=== PATIENT | female | born 1995 | race Caucasian/White ===

== ENCOUNTER 2024-09-29 13:27 | Emergency (ER) | payer OTHER, SELFPAY ==
[2024-09-29 14:00] LABS: % Basophils 0.4 % (0-2); % Eosinophils 0.6 % (0-6); % Immature Granulocytes 0.3 % (0-0.5); % Lymphocytes 18.5 % (20.5-51.1); % Monocytes 3.9 % (1.7-9.3); % Neutrophils 76.3 % (42.2-75.2); Absolute Lymphocytes 1.2 10^3/uL (1.2-3.4); Absolute Monocytes 0.3 10^3/uL (0.1-0.6); Absolute Neutrophils 5.1 10^3/uL (1.4-6.5); Hemoglobin 12.6 g/dL (12.0-16.0); Mean Corpuscular Hgb 29.9 pg (27.0-31.0); Mean Corpuscular Volume 85.5 fL (81.0-99.0); Mean Platelet Volume 9.9 fL (7.4-10.4); Nucleated Red Blood Cells % 0 %; Platelet Count 284 10^3/uL (130-400); Red Blood Cell Count 4.21 10^6/uL (4.20-5.40); Red Cell Dist. Width 12.2 % (11.5-14.5); White Blood Cell Count 6.7 10^3/uL (4.8-10.8)
[2024-09-29 14:20] LABS: ALT (SGPT) 28 U/L (0-35); AST (SGOT) 27 U/L (14-36); Alkaline Phosphatase 63 U/L (38-126); Blood Urea Nitrogen 12 mg/dl (7-17); Calcium 9.4 mg/dl (8.4-10.2); Carbon Dioxide 20 mmol/L (22-30); Chloride 106 mmol/L (98-107); Glucose 120 mg/dl (70-99); HCG, Serum Qualitative Screen Negative; Lipase 73 U/L (23-300); Potassium 3.9 mmol/L (3.5-5.1); Sodium 140 mmol/L (135-145); Total Protein 7.9 g/dl (6.3-8.2); eGFR > 60.00
--- NOTE | 2024-09-29 15:13 | ED.GENMED ---
History of Present Illness
<Darian Galvan PA-C - Last Filed: 09/29/24 16:49>
General
Chief Complaint: Abdominal Symptoms
Source: patient
Exam Limitations: none
Time Seen by Provider: 09/29/24 15:04
History of Present Illness
History of Present Illness:
29-year-old female presents with intermittent vomiting abdominal pain diarrhea for 5 days. No known sick contacts. She think she had a fever yesterday. The pain is on both sides of her abdomen and diffuse. Pain is constant. She cannot keep
anything in or down. She is concerned about dehydration.
Past History
<Darian Galvan PA-C - Last Filed: 09/29/24 16:49>
Social History
Tobacco: Smoker
Drug: Marijuana and Narcotics
Phy Exam
<JOZEF Narayanan Last Filed: 09/29/24 16:49>
Physical Exam
Physical Exam:
General: Well-appearing female no acute respiratory distress
HEENT: Normocephalic atraumatic
Heart: Regular rate and rhythm no murmurs
Lungs: Clear no wheeze abdomen is soft nontender nondistended no guarding or rebound
Extremities: No cyanosis
Course
<Darian Galvan PA-C - Last Filed: 09/29/24 16:49>
Orders/Labs/Results
Orders:
Orders
09/29/24 13:37
IV Insert/Care/Rem.- Treatment PRN
Test Result ONCE
09/29/24 13:47
Complete Blood Count/With Diff Urgent
Comprehensive Metabolic Panel Urgent
HCG, Serum Qualitative Screen Urgent
Comment: Notify provider if positive test present
Lipase Urgent
09/29/24 15:12
0.9% Sodium Chloride 1000 ml [Nss] 1,000 ml IV BOLUS
Famotidine [Pepcid] 20 mg IV NOW STA
Ondansetron Injectable [Zofran] 4 mg IV NOW STA
09/29/24 15:41
Lorazepam [Ativan] 1 mg IV NOW STA
Abnormal Lab Results
09/29/24
13:47
Hct 36.0 L %
(37.0-47.0)
Neutrophils % 76.3 H %
(42.2-75.2)
Lymphocytes % 18.5 L %
(20.5-51.1)
Carbon Dioxide 20 L mmol/L
(22-30)
Glucose 120 H mg/dl
(70-99)
09/29/24 13:47
09/29/24 13:47
Vital Signs
Initial and Last Documented VS:
Initial Vital Signs
Temp Pulse Resp Pulse Ox
98 F 81 18 96
09/29/24 13:34 09/29/24 13:34 09/29/24 13:34 09/29/24 13:34
Last Documented Vital Signs
Temp Pulse Resp BP Pulse Ox
98 F 80 17 113/74 98
09/29/24 13:34 09/29/24 16:21 09/29/24 16:21 09/29/24 16:21 09/29/24 16:21
<Edi Marcus DO - Last Filed: 09/29/24 15:59>
Orders/Labs/Results
Orders:
Orders
09/29/24 13:37
IV Insert/Care/Rem.- Treatment PRN
Test Result ONCE
09/29/24 13:47
Complete Blood Count/With Diff Urgent
Comprehensive Metabolic Panel Urgent
HCG, Serum Qualitative Screen Urgent
Comment: Notify provider if positive test present
Lipase Urgent
09/29/24 15:12
0.9% Sodium Chloride 1000 ml [Nss] 1,000 ml IV BOLUS
Famotidine [Pepcid] 20 mg IV NOW STA
Ondansetron Injectable [Zofran] 4 mg IV NOW STA
09/29/24 15:41
Lorazepam [Ativan] 1 mg IV NOW STA
Abnormal Lab Results
09/29/24
13:47
Hct 36.0 L %
(37.0-47.0)
Neutrophils % 76.3 H %
(42.2-75.2)
Lymphocytes % 18.5 L %
(20.5-51.1)
Carbon Dioxide 20 L mmol/L
(22-30)
Glucose 120 H mg/dl
(70-99)
09/29/24 13:47
09/29/24 13:47
Vital Signs
Initial and Last Documented VS:
Initial Vital Signs
Temp Pulse Resp Pulse Ox
98 F 81 18 96
09/29/24 13:34 09/29/24 13:34 09/29/24 13:34 09/29/24 13:34
Last Documented Vital Signs
Temp Pulse Resp BP Pulse Ox
98 F 80 17 113/74 98
09/29/24 13:34 09/29/24 16:21 09/29/24 16:21 09/29/24 16:21 09/29/24 16:21
<Darian Galvan PA-C - Last Filed: 09/29/24 16:49>
MDM/Problems Addressed
Differential Diagnosis Includes:
Patient with abdominal pain and vomiting and diarrhea for 5 days. Abdomen exam is nonspecific today and overall looks nontoxic but she is nauseous and is having keeping anything down or in. Concern for electrolyte abnormality or dehydration.
Check labs fluids ordered Pepcid and Zofran ordered. Considered imaging but not indicated at this time
<Darian Galvan PA-C - Last Filed: 09/29/24 16:49>
*Critical Care Note
Total Time (30-74mins, 75-104mins- exclusive of procedures): Not Applicable
<Darian Galvan PA-C - Last Filed: 09/29/24 16:49>
Update Note
Update Note:
Patient reexamined. Resting comfortably. Labs reviewed without significant finding. Differential viral illness versus foodborne. Will prescribe Zofran at home. Stable for discharge
ED Attending Note
<Darian Galvan PA-C - Last Filed: 09/29/24 16:49>
-
Portions of this chart may have been created with voice recognition software.� Occasional wrong word or��sound alike� substitutions may have occurred due to the inherent limitations of voice recognition software.
<Edi Marcus DO - Last Filed: 09/29/24 15:59>
ED Attending Note
Patient seen and examined by attending physician: Yes
I performed the substantive portion of visit, reviewed & personally made and approve the management plan that is documented in note by myself or DANIELLA.: Yes
ED Attending Note:
I evaluated the patient at bedside. The patient primarily complains of restless legs�will give a dose of benzo. She came in with nausea and vomiting. She does appear somewhat restless on exam.
Discharge Plan
Departure
Patient Disposition: Home (Routine Discharge)
Date of Disposition: 09/29/24
Time of Disposition: 16:47
Patient with high blood pressure during this ER visit?: No
Discharge Problem:
Vomiting
Instructions: Nausea and Vomiting, Adult (DC)
Prescriptions:
New
ondansetron 4 mg tablet,disintegrating
4 mg PO Q8H PRN (Reason: nausea and vomiting) Qty: 10 0RF
No Action
venlafaxine [Effexor XR] 150 MG capsule,extended release 24hr
225 mg PO DAILY
trazodone 100 MG tablet
100 mg PO HS
aripiprazole 10 MG tablet
10 mg PO DAILY
Referrals:
Jahaira Galvan CRNP [Family Provider] -
Activity Restrictions/Additional Instructions:
Drink plenty clear liquids. Use Zofran if needed for nausea. Return for worsening symptoms otherwise follow-up with your doctor
Interventions
Interventions:
*Risk Screen - Suicide Last Done: 09/29/24 13:34
*General Assessment Last Done: 09/29/24 13:34
*Neglect/Abuse Screening Last Done: 09/29/24 13:34
*ED COVID-19 Vaccine History Last Done: 09/29/24 15:28
LE-Nanppk-Egzrxzxngb Assessment Last Done: 09/29/24 15:28
Discharge Date and Time
Print Language: WOLOF
[2024-09-29] MEDS: NSS 1000 IV (15:24)
[2024-09-29] MEDS: PEPCID 20 MG IV (15:25)
[2024-09-29] MEDS: ZOFRAN 4 MG IV (15:25)
[2024-09-29] MEDS: ATIVAN 1 MG IV (15:51)
[2024-09-29 16:21] VITALS: BP 113/74
== END 2024-09-29 17:32 | disposition home or self-care (01) ==
LOC: EMR 13:27
PROVIDERS: Emergency Medicine; EMERGENCY PHYSICIAN Emergency Medicine; FAMILY PHYSICIAN Nurse Practitioner Primary Care
DX: R11.2 Nausea with vomiting, unspecified (principal); R10.9 Unspecified abdominal pain; R19.7 Diarrhea, unspecified; F17.200 Nicotine dependence, unspecified, uncomplicated
CPT/HCPCS: 99283; 96374; 96375; 96361; 80053; 83690; 84703; 85025

== ENCOUNTER 2025-04-22 13:42 | Emergency (ER) | payer OTHER, SELFPAY ==
[2025-04-22 13:44] VITALS: BP 144/88
[2025-04-22 14:21] VITALS: BP 134/89
[2025-04-22 14:29] VITALS: BMI 19.6
[2025-04-22] MEDS: TORADOL 15 MG IV (14:39)
[2025-04-22] MEDS: PROTONIX IV 40 MG IV (14:39)
[2025-04-22] MEDS: NSS 1000 IV (14:40)
[2025-04-22] MEDS: VALIUM INJECTION 2 MG IV (14:50)
[2025-04-22 14:53] LABS: ALT (SGPT) 22 U/L (0-35); AST (SGOT) 26 U/L (14-36); Albumin 5.0 g/dl (3.5-5.0); Alkaline Phosphatase 73 U/L (38-126); Blood Urea Nitrogen 9 mg/dl (7-17); Calcium 10.2 mg/dl (8.4-10.2); Carbon Dioxide 28 mmol/L (22-30); Chloride 104 mmol/L (98-107); Estimated Creatinine Clearance 96 ml/min; Glucose 129 mg/dl (70-99); Magnesium 1.8 mg/dl (1.6-2.3); Potassium 3.8 mmol/L (3.5-5.1); Sodium 140 mmol/L (135-145); Total Protein 7.8 g/dl (6.3-8.2); eGFR > 60.00
[2025-04-22 14:54] LABS: Hematocrit 40.3 % (37.0-47.0); Hemoglobin 13.9 g/dL (12.0-16.0); Mean Corp Hgb Conc. 34.5 g/dL (33.0-37.0); Mean Corpuscular Volume 86.9 fL (81.0-99.0); Nucleated Red Blood Cells % 0 %; Platelet Count 361 10^3/uL (130-400); Red Cell Dist. Width 12.4 % (11.5-14.5)
--- NOTE | 2025-04-22 14:55 | ED.GENMED ---
History of Present Illness
General
Chief Complaint: Abdominal Pain
Source: patient
Exam Limitations: none
Time Seen by Provider: 04/22/25 14:17
Nursing documentation reviewed up to this point in time: agreed with
History of Present Illness
History of Present Illness:
Patient presents to ED secondary to persistent nausea, vomiting, and nonbloody diarrhea, along with lower abdominal cramping since early this morning. Denies fever or chills. Denies trauma. Denies sick contact. Denies recent change in
medications or diet. Patient reports having had [employer] for dinner last night. Patient had no symptoms when he she went to sleep. Patient states that she was in ED earlier this year for similar complaint and treated. Patient does admit to
using marijuana, including yesterday.
Past History
Social History
Tobacco: Smoker
Drug: Marijuana and Narcotics
Review of Systems
Review of Systems
Allergies reviewed?: Yes
All Other Systems: ROS reviewed and negative except as documented in HPI and ROS
Constitutional: Reports no symptoms; Denies fever
Cardiac: Reports no symptoms
ABD/GI: Reports abdominal pain, nausea, vomiting and diarrhea
Musculoskeletal: Reports no symptoms
Skin: Reports no symptoms
Neurological: Reports no symptoms
Phy Exam
Physical Exam
Physical Exam:
Physical Exam
General: mild distress, not acutely ill. afebrile
Head: nc/at. eomi
Neck: supple. normal range of motion.
Heart: s1/s2 regular rate and rhythm
Lungs: no acute respiratory distress. clear bilaterally
Abdomen: normal bowel sounds. no distention. mild diffuse tenderness to palpation
Neuro: alert and oriented x 3. no focal neurological deficits
Skin: no rash
Psychiatric: well kept. interactive and cooperative
Extremities: no edema. no calf tenderness.
Course
Orders/Labs/Results
Orders:
Orders
04/22/25 14:21
Test Result ONCE
04/22/25 14:24
0.9% Sodium Chloride 1000 ml [Nss] 1,000 ml IV BOLUS
Ketorolac [Toradol] 15 mg IV NOW STA
Pantoprazole [Protonix IV] 40 mg IV NOW STA
04/22/25 14:31
Complete Blood Count/With Diff Urgent
Comprehensive Metabolic Panel Urgent
HCG, Serum Qualitative Screen Urgent
Magnesium Urgent
04/22/25 14:45
diazePAM [Valium Injection] 2 mg IV NOW STA
04/22/25 15:57
Haloperidol Lactate [Haldol] 5 mg IV NOW STA
04/22/25 15:59
0.9% Sodium Chloride 500 ml [Nss] 500 ml IV BOLUS
Abnormal Lab Results
04/22/25
14:31
Absolute Neuts (auto) 8.8 H 10^3/uL
(1.4-6.5)
Absolute Lymphs (auto) 0.9 L 10^3/uL
(1.2-3.4)
Neutrophils % 88.4 H %
(42.2-75.2)
Lymphocytes % 9.1 L %
(20.5-51.1)
Glucose 129 H mg/dl
(70-99)
04/22/25 14:31
04/22/25 14:31
Vital Signs
Initial and Last Documented VS:
Initial Vital Signs
Temp Pulse Resp BP Pulse Ox
97.6 F 84 18 144/88 100
04/22/25 13:44 04/22/25 13:44 04/22/25 13:44 04/22/25 13:44 04/22/25 13:44
Last Documented Vital Signs
Temp Pulse Resp BP Pulse Ox
97.6 F 84 18 103/60 98
04/22/25 13:44 04/22/25 13:44 04/22/25 13:44 04/22/25 17:00 04/22/25 17:45
MDM/Problems Addressed
MDM/Problems Addressed:
Patient without any further vomiting episodes after treatment. Patient otherwise remains afebrile, hemodynamically stable, and nontoxic-appearing. Patient presentation likely nonspecific, i.e. viral versus food reaction versus chronic use of
marijuana, less likely acute surgical pathology, i.e. appendicitis. Repeat abdominal exam: Soft and nontender. As such, patient will be treated symptomatically with recommendation to follow-up PCP for reevaluation, or return to ED with worsening
symptoms.
*Pulse Oximetry
SaO2: 100
Oxygen Mode of Delivery: Room air
Patient hypoxic: no
*Critical Care Note
Total Time (30-74mins, 75-104mins- exclusive of procedures): Not Applicable
ED Attending Note
-
Portions of this chart may have been created with voice recognition software.� Occasional wrong word or��sound alike� substitutions may have occurred due to the inherent limitations of voice recognition software.
Discharge Plan
Departure
Patient Disposition: Home (Routine Discharge)
Patient with high blood pressure during this ER visit?: Yes
Discharge Problem:
Gastroenteritis
Instructions: Viral gastroenteritis in adults
Prescriptions:
New
ondansetron 4 mg Tablet,Disintegrating
4 mg PO TIDPRN PRN (Reason: nausea/vomiting) Qty: 12 0RF
No Action
venlafaxine [Effexor XR] 150 MG capsule,extended release 24hr
225 mg PO DAILY
trazodone 100 MG tablet
100 mg PO HS
aripiprazole 10 MG tablet
10 mg PO DAILY
ondansetron 4 mg tablet,disintegrating
4 mg PO Q8H PRN (Reason: nausea and vomiting) Qty: 10 0RF
Referrals:
Jahaira Galvan CRNP [Family Provider]
Activity Restrictions/Additional Instructions:
As discussed, please follow-up with your primary care physician for reevaluation. Please consider return to ED with worsening symptoms, i.e. fever/worsening pain/vomiting despite medications. Your prescription has been sent electronically to [facility] in [place].
Interventions
Interventions:
*Risk Screen - Suicide Last Done: 04/22/25 13:44
*General Assessment Last Done: 04/22/25 13:44
*Neglect/Abuse Screening Last Done: 04/22/25 13:44
*ED- Fall Risk Assessment Last Done: 04/22/25 14:30
*ED COVID-19 Vaccine History Last Done: 04/22/25 14:30
*Nursing Disposition Last Done: 04/22/25 18:00
FA-Zhbqdk-Jeburdsibk Assessment Last Done: 04/22/25 14:00
Discharge Date and Time
Discharge Date/Time: 04/22/25 18:00
Print Language: YI
[2025-04-22 15:00] VITALS: BP 131/76
[2025-04-22 15:20] LABS: HCG, Serum Qualitative Screen Negative
[2025-04-22] MEDS: HALDOL 5 MG IV (16:23)
[2025-04-22] MEDS: NSS 500 IV (16:33)
[2025-04-22 17:00] VITALS: BP 103/60
== END 2025-04-22 18:00 | disposition home or self-care (01) ==
LOC: EMR 13:42
PROVIDERS: EMERGENCY PHYSICIAN Emergency Medicine; FAMILY PHYSICIAN Nurse Practitioner Primary Care
DX: K52.9 Noninfective gastroenteritis and colitis, unspecified (principal); F17.200 Nicotine dependence, unspecified, uncomplicated
CPT/HCPCS: 96374; 96375; 96361; 99284; 80053; 83735; 84703; 85025

== ENCOUNTER 2025-07-05 13:26 | Emergency (ER) | payer OTHER, SELFPAY ==
[2025-07-05 13:29] VITALS: BP 147/103
[2025-07-05 13:59] VITALS: BMI 19.0
--- NOTE | 2025-07-05 15:33 | ED.GENMED ---
History of Present Illness
General
Chief Complaint: Crisis Evaluation
Time Seen by Provider: 07/05/25 14:24
History of Present Illness
History of Present Illness:
30-year-old female presents to the emergency department for evaluation of increasing anxiety and depression over the past several days. She reports going through a recent break-up that has led to significant stress, she is currently residing with
her family. She is not sleeping and not eating over the past several days. Denies any SI or HI, denies hallucinations.
Past History
Social History
Tobacco: Smoker
Drug: Marijuana and Narcotics
Review of Systems
Review of Systems
Allergies reviewed?: Yes
All Other Systems: ROS reviewed and negative except as documented in HPI and ROS
Phy Exam
Physical Exam
Physical Exam:
GEN: Well appearing, NAD, WDWN
HEENT: Oral mucosa moist, no scleral icterus
Cardiac: Regular rate
Lung: No respiratory distress, no tachypnea
MSK: No gross deformity or injuries
Skin: Good color, no pallor or jaundice, no rashes
Neuro: AO x3, moves all extremities freely
Psych: Tearful and anxious, cooperative
Course
Orders/Labs/Results
Orders:
Orders
07/05/25 14:31
Crisis Consult Urgent
Reason for Consult: anxiety
Test Result ONCE
07/05/25 15:26
Complete Blood Count/No Diff Urgent
Comprehensive Metabolic Panel Urgent
HCG, Serum Qualitative Screen Urgent
07/05/25 15:48
Lorazepam [Ativan] 1 mg PO NOW STA
Abnormal Lab Results
07/05/25
15:26
WBC 12.6 H 10^3/uL
(4.8-10.8)
Chloride 97 L mmol/L
(98-107)
BUN 18 H mg/dl
(7-17)
Glucose 103 H mg/dl
(70-99)
Total Protein 8.4 H g/dl
(6.3-8.2)
Albumin 5.1 H g/dl
(3.5-5.0)
07/05/25 15:26
07/05/25 15:26
Vital Signs
Initial and Last Documented VS:
Initial Vital Signs
Temp Pulse Resp BP Pulse Ox
98.2 F 83 16 147/103 97
07/05/25 13:29 07/05/25 13:29 07/05/25 13:29 07/05/25 13:29 07/05/25 13:29
Last Documented Vital Signs
Temp Pulse Resp BP Pulse Ox
98.2 F 60 18 141/79 97
07/05/25 13:29 07/05/25 16:18 07/05/25 16:18 07/05/25 16:18 07/05/25 16:18
MDM/Problems Addressed
MDM/Problems Addressed:
Patient seen by crisis and will be placed in intensive outpatient program. No SI or HI, does not warrant inpatient hospitalization. Will provide small quantity of lorazepam for acute anxiolysis, this will be controlled by her grandmother to avoid
excessive use. She is comfortable with this plan
*Pulse Oximetry
SaO2: 97
Oxygen Mode of Delivery: Room air
Patient hypoxic: no
*Critical Care Note
Total Time (30-74mins, 75-104mins- exclusive of procedures): Not Applicable
ED Attending Note
-
Portions of this chart may have been created with voice recognition software.� Occasional wrong word or��sound alike� substitutions may have occurred due to the inherent limitations of voice recognition software.
Discharge Plan
Departure
Patient Disposition: Home (Routine Discharge)
Date of Disposition: 07/05/25
Time of Disposition: 16:24
Patient with high blood pressure during this ER visit?: No
Discharge Problem:
Anxiety
Instructions: Anxiety, Adult (DC)
Prescriptions:
New
lorazepam 1 mg tablet
1 mg PO BID PRN (Reason: anxiety) Qty: 8 0RF
No Action
venlafaxine [Effexor XR] 150 MG capsule,extended release 24hr
225 mg PO DAILY
trazodone 100 MG tablet
100 mg PO HS
aripiprazole 10 MG tablet
10 mg PO DAILY
ondansetron 4 mg tablet,disintegrating
4 mg PO Q8H PRN (Reason: nausea and vomiting) Qty: 10 0RF
ondansetron 4 mg Tablet,Disintegrating
4 mg PO TIDPRN PRN (Reason: nausea/vomiting) Qty: 12 0RF
Referrals:
Jahaira Galvan CRNP [Family Provider]
Interventions
Interventions:
*Risk Screen - Suicide Last Done: 07/05/25 13:29
*General Assessment Last Done: 07/05/25 14:00
*Neglect/Abuse Screening Last Done: 07/05/25 13:29
*ED- Fall Risk Assessment Last Done: 07/05/25 14:00
*ED COVID-19 Vaccine History Last Done: 07/05/25 14:00
*ED Influenza Vaccine History Last Done: 07/05/25 14:00
*Nursing Disposition Last Done: 07/05/25 16:35
ED-Psychological Assessment Last Done: 07/05/25 14:00
Discharge Date and Time
Discharge Date/Time: 07/05/25 16:36
Print Language: WELSH
[2025-07-05 15:44] LABS: Hematocrit 38.1 % (37.0-47.0); Hemoglobin 13.3 g/dL (12.0-16.0); Mean Corp Hgb Conc. 34.9 g/dL (33.0-37.0); Mean Corpuscular Volume 88.0 fL (81.0-99.0); Platelet Count 342 10^3/uL (130-400); Red Cell Dist. Width 12.8 % (11.5-14.5)
[2025-07-05 15:59] LABS: HCG, Serum Qualitative Screen Negative
[2025-07-05 16:08] LABS: ALT (SGPT) 31 U/L (0-35); AST (SGOT) 35 U/L (14-36); Albumin 5.1 g/dl (3.5-5.0); Alkaline Phosphatase 65 U/L (38-126); Blood Urea Nitrogen 18 mg/dl (7-17); Calcium 10.1 mg/dl (8.4-10.2); Carbon Dioxide 29 mmol/L (22-30); Chloride 97 mmol/L (98-107); Estimated Creatinine Clearance 95 ml/min; Glucose 103 mg/dl (70-99); Potassium 3.7 mmol/L (3.5-5.1); Sodium 135 mmol/L (135-145); Total Protein 8.4 g/dl (6.3-8.2); eGFR > 60.00
[2025-07-05 16:18] VITALS: BP 141/79
[2025-07-05] MEDS: ATIVAN 1 MG PO (16:19)
== END 2025-07-05 16:36 | disposition home or self-care (01) ==
LOC: EMR 13:26
PROVIDERS: Physician Assistant; EMERGENCY PHYSICIAN Emergency Medicine; FAMILY PHYSICIAN Nurse Practitioner Primary Care
DX: F41.9 Anxiety disorder, unspecified (principal); F17.200 Nicotine dependence, unspecified, uncomplicated
CPT/HCPCS: 99283; 80053; 84703; 85027